=== PATIENT | male | born 1945 | race Asian ===

== ENCOUNTER 2024-05-15 09:36 | Outpatient (CLI) | payer OTHER ==
[2024-05-15] MEDS ORDERED: Iopamidol 300 61% 100 ML VIAL FS ONE (10:17)
== END 2024-05-15 09:37 | disposition home or self-care (01) ==
LOC: CSHCT 09:36
PROVIDERS: ATTEND Physician Assistant Medical
DX: Z86.0100 Personal history of colon polyps, unspecified (principal); Z80.0 Family history of malignant neoplasm of digestive organs; Z87.19 Personal history of other diseases of the digestive system; R10.13 Epigastric pain; Z86.79 Personal history of other diseases of the circulatory system; I10 Essential (primary) hypertension
CPT/HCPCS: 74177; 82565